=== PATIENT | female | born 1985 | race Caucasian/White ===

== ENCOUNTER 2021-10-29 23:19 | Emergency (ER) | payer MEDICAID ==
[~2021-10-29] VITALS: Ht 170.2 cm; Wt 63.6 kg
[2021-10-30 00:01] VITALS: BP 97/63
[2021-10-30] MEDS ORDERED: DIPH25CA83 MT (15:30)
[2021-10-30] MEDS ORDERED: P20 MT (15:30)
[2021-10-30] MEDS ORDERED: FAMO-135 MT (15:30)
== END 2021-10-30 05:14 | disposition left against medical advice (07) ==
LOC: EDSEX → ER 23:19
DX: Z53.21 Procedure and treatment not carried out due to patient leaving prior to being seen by health care provider (principal)

== ENCOUNTER 2021-10-30 12:31 | Emergency (ER) | payer MEDICAID, OTHER ==
[~2021-10-30] VITALS: Ht 170.2 cm; Wt 62.0 kg
[2021-10-30 12:37] VITALS: BP 103/77
[2021-10-30] MEDS ORDERED: P20 MT (15:30)
[2021-10-30] MEDS ORDERED: FAMOTIDINE 20MG TABLET PO ONE (15:30)
[2021-10-30] MEDS ORDERED: PREDNISONE 20MG TABLET PO ONE (15:30)
[2021-10-30] MEDS ORDERED: DIPH25CA83 MT (15:30)
[2021-10-30] MEDS ORDERED: FAMO-135 MT (15:30)
== END 2021-10-30 15:45 | disposition home or self-care (01) ==
LOC: ER 12:31 → EDSEX 12:31 → ER 15:45
DX: L23.2 Allergic contact dermatitis due to cosmetics (principal); Z90.49 Acquired absence of other specified parts of digestive tract; Z90.89 Acquired absence of other organs
CPT/HCPCS: 81025; 99283; J7512